=== PATIENT | female | born 1995 | race Caucasian/White ===

== ENCOUNTER 2019-06-05 09:09 | Emergency (ER) | payer OTHER ==
[~2019-06-05] VITALS: Ht 160 cm; Wt 55.0 kg
[2019-06-05 10:45] LABS: CLARITY URINE CLOUDY (CLEAR); COLOR URINE YELLOW (YELLOW); KETONES URINE NEGATIVE (NEGATIVE); LEUKOCYTE ESTERASE URINE NEGATIVE (NEGATIVE); NITRITE URINE NEGATIVE (NEGATIVE); OCCULT BLOOD URINE NEGATIVE (NEGATIVE); PH URINE 5.5 (4.5-8.0); PROTEIN URINE NEGATIVE (NEGATIVE); SPECIFIC GRAVITY URINE 1.007 (1.005-1.030); UROBILINOGEN URINE 0.2 E.U./dL (0.2-1.0)
[2019-06-05] MEDS ORDERED: IBUPROFEN 600MG TABLET PO ONE (10:45)
[2019-06-05 11:30] VITALS: BP 102/67
== END 2019-06-05 11:40 | disposition home or self-care (01) ==
LOC: ER 09:09
DX: N10 Acute pyelonephritis (principal)
CPT/HCPCS: 81003; 81025; 99283